=== PATIENT | male | born 1955 | race Caucasian/White ===

== ENCOUNTER 2019-03-11 11:31 | Outpatient (CLI) | END 2019-03-11 11:32 | disposition home or self-care (01) | LOC: RHC-LAB 11:31 → FCC-LAB 11:32 | PROVIDERS: ATTEND Family Medicine | DX: E53.8 Deficiency of other specified B group vitamins (principal); E11.9 Type 2 diabetes mellitus without complications; E78.5 Hyperlipidemia, unspecified | CPT/HCPCS: 36415; 80053; 80061; 82043; 82607; 83037; 85025 ==

== ENCOUNTER 2019-04-02 10:52 | Outpatient (CLI) | END 2019-04-02 10:53 | disposition home or self-care (01) | LOC: RHC-LAB 10:52 → FCC-LAB 10:53 | PROVIDERS: ATTEND Family Medicine | DX: E13.65 Other specified diabetes mellitus with hyperglycemia (principal) | CPT/HCPCS: 36415; 83519; 84681 ==